=== PATIENT | female | born 1990 | race Caucasian/White ===

== ENCOUNTER 2016-09-02 22:57 | Outpatient (CLI) | payer MEDICAID | END 2016-09-02 22:58 | disposition critical access hospital (66) | DX: S09.90XA Unspecified injury of head, initial encounter (principal); R56.9 Unspecified convulsions; W18.39XA Other fall on same level, initial encounter; Y92.480 Sidewalk as the place of occurrence of the external cause | CPT/HCPCS: A0425; A0429 ==

== ENCOUNTER 2016-09-02 23:12 | Emergency (ER) | payer MEDICAID ==
[2016-09-03] MEDS ORDERED: levETIRAcetam 250 MG TABLET PO STA (01:26)
[2016-09-03] MEDS ORDERED: LIDOCAINE 2%-EPI 1:100000 20 ML MDV ONE (01:28)
[2016-09-03] MEDS ORDERED: levETIRAcetam 250 MG TABLET ONE (01:28)
== END 2016-09-03 01:58 | disposition home or self-care (01) ==
DX: R55 Syncope and collapse (principal); R56.9 Unspecified convulsions; S01.01XA Laceration without foreign body of scalp, initial encounter; W18.39XA Other fall on same level, initial encounter; Y92.009 Unspecified place in unspecified non-institutional (private) residence as the place of occurrence of the external cause; M54.2 Cervicalgia; M54.9 Dorsalgia, unspecified; F17.200 Nicotine dependence, unspecified, uncomplicated
CPT/HCPCS: 12002; 36415; 70450; 72125; 80053; 80306; 81001; 81025; 83690; 85025; 93005; 93010; 99284; 99285; A9270

== ENCOUNTER 2016-12-25 09:36 | Outpatient (CLI) | payer MEDICAID ==
[2016-12-25 12:31] LABS: LYMPHOCYTES # (AUTO) 4.5 10^3/uL (1.5-3.5)
[2016-12-25 12:35] LABS: BASOPHILS % (AUTO) 0.4 %; EOSINOPHILS # (AUTO) 0.2 10^3/uL (0.0-0.7); EOSINOPHILS % (AUTO) 2.1 %; HCT - HEMATOCRIT 42.6 % (37.0-47.0); HGB - HEMOGLOBIN 14.4 g/dL (12.0-16.0); LYMPHOCYTES % (AUTO) 39.7 %; MEAN CORPUSCULAR HEMOGLOBIN 29.7 pg (27.0-31.0); MEAN CORPUSCULAR HGB CONC 33.8 g/dL (32.0-36.0); MEAN CORPUSCULAR VOLUME 87.9 fL (81.0-99.0); MEAN PLATELET VOLUME 7.7 fL (7.9-10.8); MONOCYTES # (AUTO) 0.7 10^3/uL (0.0-1.0); MONOCYTES % (AUTO) 5.9 %; NEUTROPHILS # (AUTO) 5.9 10^3/uL (1.5-6.6); NEUTROPHILS % (AUTO) 51.9 %; RED BLOOD COUNT 4.85 10^6/uL (4.20-5.40); RED CELL DISTRIBUTION WIDTH 13.5 % (12.0-15.0); UNCORRECTED WHITE BLOOD COUNT 11.4 x10^3/uL; WHITE BLOOD COUNT 11.4 x10^3/uL (4.8-10.8)
[2016-12-25 13:11] LABS: ALBUMIN/GLOBULIN RATIO 1.1 (1.0-2.2); BILIRUBIN,TOTAL 0.2 mg/dL (0.2-1.0); BUN - BLOOD UREA NITROGEN 11 mg/dL (6-20); CARBON DIOXIDE - CO2 26 mmol/L (21-32); CHLORIDE 105 mmol/L (101-111); CHOL/HDL RATIO 3.9 (<4.4); CHOLESTEROL 196 mg/dL; CREATININE 0.8 mg/dL (0.4-1.0); GFR - MDRD 86 (>89); GLUCOSE 88 mg/dL (70-100); HDL CHOLESTEROL 50 mg/dL; LDL/HDL RATIO 2.5 (<4.4); POTASSIUM 4.3 mmol/L (3.5-5.0); SODIUM 138 mmol/L (135-145); TOTAL PROTEIN 7.3 g/dL (6.7-8.2); TRIGLYCERIDES 114 mg/dL; VLDL CHOLESTEROL 23 mg/dL
[2016-12-25 13:34] LABS: THYROID STIMULATING HORMONE 5.95 uIU/mL (0.34-5.60)
== END 2016-12-25 09:37 | disposition home or self-care (01) ==
LOC: LAB.N 09:36
PROVIDERS: ATTEND Family Medicine
DX: F41.1 Generalized anxiety disorder (principal); F33.1 Major depressive disorder, recurrent, moderate; Z51.81 Encounter for therapeutic drug level monitoring; R56.9 Unspecified convulsions
CPT/HCPCS: 36415; 80053; 80061; 84439; 84443; 85025

== ENCOUNTER 2017-06-08 14:21 | Outpatient (CLI) | payer MEDICAID ==
--- NOTE | 2017-06-08 21:38 | XRAY Report ---
DATE OF SERVICE: 06/08/2017 THREE VIEW LEFT KNEE: 06/08/2017 CLINICAL INDICATION: Pain. AP, lateral, sunrise views of the left knee demonstrate no evidence of fracture or dislocation. The joint spaces are preserved. No effusion is present. IMPRESSION: Normal left knee. TD: 06/08/2017 22:37
== END 2017-06-08 14:22 | disposition home or self-care (01) ==
LOC: DI 14:21
PROVIDERS: ATTEND Physician Assistant Medical
DX: M25.562 Pain in left knee (principal)

== ENCOUNTER 2017-07-11 19:36 | Emergency (ER) | payer MEDICAID ==
[2017-07-11 20:10] LABS: BILIRUBIN,URINE NEGATIVE (NEGATIVE); GLUCOSE, URINE (UA) NEGATIVE (NEGATIVE); KETONES,URINE (UA) NEGATIVE (NEGATIVE); LEUKOCYTE ESTERASE, URINE NEGATIVE (NEGATIVE); NITRITE,URINE NEGATIVE (NEGATIVE); OCCULT BLOOD,URINE NEGATIVE (NEGATIVE); PH,URINE 5.5 PH (5.0-7.5); PROTEIN,URINE NEGATIVE (NEGATIVE); UROBILINOGEN,URINE 0.2 (NORMAL) E.U./dL (NORMAL)
[2017-07-11 20:11] LABS: CLARITY,URINE CLEAR (CLEAR); HCG UR QUAL NEGATIVE
[2017-07-11] MEDS ORDERED: KETOROLAC 60 MG/2 ML VIAL IM STA (21:25)
[2017-07-11] MEDS ORDERED: LIDOCAINE PATCH 5% TOP STA (21:25)
[2017-07-11] MEDS ORDERED: DEXAMETHASONE 10 MG/ML VIAL PO STA (21:25)
[2017-07-11] MEDS ORDERED: CHERRY SYRUP 10 ML UDC PO ONE (21:42)
--- NOTE | 2017-07-11 21:55 | ED Physician Documentation ---
PD HPI BACK PAIN - Stated complaint Stated Complaint: BACK PX - Chief complaint Chief Complaint: Back Pain - History obtained from History obtained from: Patient, Family - History of Present Illness Timing - onset: Yesterday Timing - details: Gradual onset, Still present Location: Upper, Left Quality: Pain, Spasm Associated symptoms: No: Fever, Weakness, Hematuria Similar symptoms before: Has not had sx before Recently seen: Not recently seen - Additional information Additional information: Patient is a 26 year old female with no significant past medical history who is presenting to the emergency department for back pain. Patient states that the pain originally started on her right side yesterday and has moved to the left side today. Patient denies any trauma, but states that she has been coughing a lot. Review of Systems Constitutional: denies: Fever, Chills Eyes: reports: Reviewed and negative Ears: reports: Reviewed and negative Nose: reports: Reviewed and negative Throat: reports: Reviewed and negative Cardiac: denies: Chest pain / pressure, Palpitations Respiratory: reports: Cough GI: denies: Abdominal Pain, Nausea, Vomiting : denies: Dysuria, Frequency Skin: denies: Rash, Lesions Musculoskeletal: reports: Back pain Neurologic: denies: Generalized weakness, Focal weakness Psychiatric: reports: Reviewed and negative Endocrine: reports: Reviewed and negative PD PAST MEDICAL HISTORY - Past Medical History Neuro: Seizure disorder - Past Surgical History Past Surgical History: No - Present Medications Home Medications: Ambulatory Orders Medication Instructions Recorded Confirmed levETIRAcetam [Keppra] 500 mg PO BID #60 tablet 09/03/16 Cyclobenzaprine [Flexeril] 10 mg PO TID PRN #10 tablet 07/11/17 Lidocaine Patch 5% [Lidoderm Patch] 1 each TOP DAILY #10 patch 07/11/17 - Allergies Allergies/Adverse Reactions: Allergies Allergy/AdvReac Type Severity Reaction Status Date / Time Penicillins Allergy Unknown Verified 07/11/17 19:49 - Social History Does the pt smoke?: Yes Smoking Status: Current every day smoker Does the pt drink ETOH?: No Does the pt have substance abuse?: No - Immunizations Immunizations are current?: Yes - POLST Patient has POLST: No PD ED PE NORMAL - Vitals Vital signs reviewed: Yes - General General: Alert and oriented X 3, Well developed/nourished - HEENT HEENT: Atraumatic, PERRL - Neck Neck: Supple, no meningeal sign - Cardiac Cardiac: RRR, No murmur - Respiratory Respiratory: No respiratory distress, Clear bilaterally - Abdomen Abdomen: Soft, Non tender, Non distended - Derm Derm: Normal color, Warm and dry, No rash - Extremities Extremities: No deformity - Neuro Neuro: Alert and oriented X 3, No motor deficit Eye Opening: Spontaneous Motor: Obeys Commands Verbal: Oriented GCS Score: 15 - Psych Psych: Normal mood PD ED PE EXPANDED - General General: Alert, Anxious, In Pain - Back Back: Soft tissue tenderness (tenderness to palpation of left upper thoracic paraspinal muscles) Results - Vitals Vitals: Vital Signs - 24 hr 07/11/17 19:46 Temperature 37.0 C Heart Rate 112 H Respiratory 18 Rate Blood Pressure 128/94 H O2 Saturation 96 Oxygen O2 Source Room air - Labs Labs: Laboratory Tests 07/11/17 19:56 Urine Color YELLOW Urine Clarity CLEAR Urine pH 5.5 Ur Specific [place] <=1.005 Urine Protein NEGATIVE Urine Glucose (UA) NEGATIVE Urine Ketones NEGATIVE Urine Occult Blood NEGATIVE Urine Nitrite NEGATIVE Urine Bilirubin NEGATIVE Urine Urobilinogen 0.2 (NORMAL) Ur Leukocyte Esterase NEGATIVE Ur Microscopic Review NOT INDICATED Urine Culture Comments NOT INDICATED Urine HCG, Qual NEGATIVE PD MEDICAL DECISION MAKING - ED course Complexity details: reviewed old records, reviewed results, re-evaluated patient , considered differential, d/w patient, d/w family ED course: Patient was seen and examined at bedside. Patient's urine was collected and within normal limits. Patient had tenderness to palpation of her left upper back. Patient was treated with toradol, decadron, flexeril and a lidoderm patch. Patient required no further work up and was stable for discharge with outpatient follow up. Departure - Departure Disposition: 01 Home, Self Care Clinical Impression: Muscle strain of left upper back Condition: Good Instructions: ED Spasm Back No Trauma Follow-Up: Luan Zamorano MD [Primary Care Provider] - Within 1 week Prescriptions: Cyclobenzaprine [Flexeril] 10 mg PO TID PRN #10 tablet PRN Reason: Spasms Lidocaine Patch 5% [Lidoderm Patch] 1 each TOP DAILY #10 patch Comments: Your symptoms today are likely secondary to muscle spasm. You should take motrin or tylenol as needed for pain and alternate between ice and heat. You should follow up with your doctor if your symptoms persist. You may return to the emergency department at any time for new, worsening or uncontrollable symptoms.
[2017-07-11] MEDS ORDERED: CYCLOBENZAPRINE 10 MG TABLET PO STA (22:03)
[2017-07-11 22:09] VITALS: BP 138/78
== END 2017-07-11 22:09 | disposition home or self-care (01) ==
LOC: ED 19:36
DX: S29.012A Strain of muscle and tendon of back wall of thorax, initial encounter (principal); X58.XXXA Exposure to other specified factors, initial encounter; F17.200 Nicotine dependence, unspecified, uncomplicated
CPT/HCPCS: 81003; 81025; 96372; 99283; A9270; 81001; 87086

== ENCOUNTER 2017-07-19 20:32 | Emergency (ER) | payer MEDICAID ==
[2017-07-19 21:16] LABS: BASOPHILS # (AUTO) 0.1 10^3/uL (0.0-0.1); BASOPHILS % (AUTO) 0.7 %; EOSINOPHILS # (AUTO) 0.2 10^3/uL (0.0-0.7); EOSINOPHILS % (AUTO) 1.2 %; HGB - HEMOGLOBIN 13.4 g/dL (12.0-16.0); LYMPHOCYTES % (AUTO) 21.9 %; MEAN CORPUSCULAR HGB CONC 32.4 g/dL (32.0-36.0); MEAN CORPUSCULAR VOLUME 86.4 fL (81.0-99.0); MEAN PLATELET VOLUME 7.4 fL (7.9-10.8); MONOCYTES # (AUTO) 1.7 10^3/uL (0.0-1.0); MONOCYTES % (AUTO) 9.2 %; NEUTROPHILS # (AUTO) 12.3 10^3/uL (1.5-6.6); PLT - PLATELET COUNT 165 10^3/uL (130-450); RED BLOOD COUNT 4.78 10^6/uL (4.20-5.40); RED CELL DISTRIBUTION WIDTH 13.5 % (12.0-15.0); WHITE BLOOD COUNT 18.3 x10^3/uL (4.8-10.8)
[2017-07-19 21:22] LABS: GLUCOSE, URINE (UA) 100 mg/dL (NEGATIVE); KETONES,URINE (UA) NEGATIVE (NEGATIVE); LEUKOCYTE ESTERASE, URINE TRACE (NEGATIVE); NITRITE,URINE NEGATIVE (NEGATIVE); OCCULT BLOOD,URINE TRACE-LYSE (NEGATIVE); PH,URINE 5.5 PH (5.0-7.5); PROTEIN,URINE 30 mg/dL (NEGATIVE); UROBILINOGEN,URINE >=8.0 E.U./dL (NORMAL)
[2017-07-19 21:27] LABS: CLARITY,URINE CLOUDY (CLEAR)
[2017-07-19 21:28] LABS: BILIRUBIN,URINE MODERATE (NEGATIVE); HCG UR QUAL NEGATIVE; ICTOTEST,URINE POSITIVE
[2017-07-19 21:31] LABS: BACTERIA,URINE Moderate /HPF (None Seen); RBC,URINE 0-5 /HPF (0-5); SQUAMOUS EPITHELIAL CELL,UR MOD Squamous (<= Few)
[2017-07-19 21:36] LABS: DIFFERENTIAL COMMENT MANUAL=AUTO DIFF; PLATELET ESTIMATE, MANUAL NORMAL (130-450,000) (NORMAL); PLATELET MORPHOLOGY NORMAL APPEARANCE (NORMAL); RBC MORPHOLOGY (MULTIPLE) NORMAL APPEARANCE (NORMAL)
[2017-07-19 21:43] LABS: ALBUMIN 3.1 g/dL (3.2-5.5); ALBUMIN/GLOBULIN RATIO 0.8 (1.0-2.2); CALCIUM 8.5 mg/dL (8.5-10.3); CREATININE 1.3 mg/dL (0.4-1.0); TOTAL PROTEIN 6.8 g/dL (6.7-8.2)
--- NOTE | 2017-07-19 22:28 | ED Physician Documentation ---
PD HPI NVD - Stated complaint Stated Complaint: VOMITING/NAUSEA - Chief complaint Chief Complaint: Abd Pain - History obtained from History obtained from: Patient - History of Present Illness Timing - onset: How many days ago (2) Timing - duration: Days (2) Timing - details: Gradual onset, Waxing and waning Pain level now: 3 Associated symptoms: Abdominal pain (across upper abdomen). No: Fever, Chest pain Improved by: Other (no ameliorating factors) Worsened by: Eating Similar symptoms before: Has not had sx before Recently seen: Not recently seen Review of Systems Constitutional: reports: Reviewed and negative Eyes: reports: Reviewed and negative Ears: reports: Reviewed and negative Nose: reports: Reviewed and negative Throat: reports: Reviewed and negative Cardiac: reports: Reviewed and negative Respiratory: reports: Dyspnea. denies: Cough GI: reports: Abdominal Pain, Nausea, Vomiting : denies: Dysuria, Frequency Skin: reports: Reviewed and negative Musculoskeletal: reports: Reviewed and negative Neurologic: reports: Reviewed and negative PD PAST MEDICAL HISTORY - Past Medical History Neuro: Seizure disorder - Past Surgical History Past Surgical History: No - Present Medications Home Medications: Ambulatory Orders Medication Instructions Recorded Confirmed levETIRAcetam [Keppra] 500 mg PO BID #60 tablet 09/03/16 Cyclobenzaprine [Flexeril] 10 mg PO TID PRN #10 tablet 07/11/17 Norgestimate-Ethinyl Estradiol 1 each PO 07/19/17 [Ortho Tri-Cyclen 28 Tablet] Risperidone [Risperdal] 0.5 mg PO 07/19/17 Sertraline [Zoloft] 25 mg PO DAILY 07/19/17 07/19/17 - Allergies Allergies/Adverse Reactions: Allergies Allergy/AdvReac Type Severity Reaction Status Date / Time Penicillins Allergy Unknown Verified 07/19/17 20:45 - Social History Does the pt smoke?: Yes Smoking Status: Current every day smoker Does the pt drink ETOH?: No Does the pt have substance abuse?: No - Immunizations Immunizations are current?: Yes - POLST Patient has POLST: No PD ED PE NORMAL - Vitals Vital signs reviewed: Yes - General General: Alert and oriented X 3, No acute distress, Well developed/nourished - HEENT HEENT: Moist mucous membranes - Neck Neck: Supple, no meningeal sign - Cardiac Cardiac: RRR, No murmur, No gallop, No rub - Respiratory Respiratory: No respiratory distress, Other (L>R rales) - Abdomen Abdomen: Soft, Non distended, Other (mild tenderness LUQ>epigastrium) - Back Back: No CVA TTP - Derm Derm: Normal color, Warm and dry - Extremities Extremities: No edema - Neuro Neuro: Alert and oriented X 3 Results - Vitals Vitals: Vital Signs - 24 hr 07/19/17 07/19/17 07/20/17 20:38 23:00 00:15 Temperature 37.4 C Heart Rate 112 H 105 H 107 H Respiratory 18 15 14 Rate Blood Pressure 128/79 115/92 H 111/83 H O2 Saturation 93 94 95 07/20/17 07/20/17 07/20/17 02:04 03:14 04:15 Temperature Heart Rate 107 H 108 H 110 H Respiratory 20 20 20 Rate Blood Pressure 103/77 113/81 H 113/81 H O2 Saturation 96 92 94 Oxygen O2 Source Room air Oxygen Flow Rate 2 - Labs Labs: Laboratory Tests 07/19/17 07/19/17 07/19/17 20:58 21:05 21:05 WBC 18.3 H RBC 4.78 Hgb 13.4 Hct 41.3 MCV 86.4 MCH 28.0 MCHC 32.4 RDW 13.5 Plt Count 165 MPV 7.4 L Neut # 12.3 H Lymph # 4.0 H [place] # 1.7 H Eos # 0.2 Baso # 0.1 Absolute Nucleated RBC 0.03 Band Neuts % (Manual) Not Reportable Abnorm Lymph % (Manual) Not Reportable Nucleated RBC % 0.1 Neutrophils # (Manual) Not Reportable Lymphocytes # (Manual) Not Reportable Monocytes # (Manual) Not Reportable Eosinophils # (Manual) Not Reportable Basophils # (Manual) Not Reportable Differential Comment MANUAL=AUTO DIFF Platelet Estimate NORMAL (130-450,000) Platelet Morphology NORMAL APPEARANCE RBC Morph Micro Appear NORMAL APPEARANCE ESR Sodium 130 L Potassium 4.4 Chloride 94 L Carbon Dioxide 25 Anion Gap 11.0 BUN 17 Creatinine 1.3 H Estimated GFR (MDRD) 49 L Glucose 176 H Calcium 8.5 Total Bilirubin 1.0 AST 1328 H ALT 1634 H Alkaline Phosphatase 101 Total Protein 6.8 Albumin 3.1 L Globulin 3.7 Albumin/Globulin Ratio 0.8 L Lipase 16 L Urine Color DARK YELLOW Urine Clarity CLOUDY Urine pH 5.5 Ur Specific [place] >=1.030 H Urine Protein 30 H Urine Glucose (UA) 100 H Urine Ketones NEGATIVE Urine Occult Blood TRACE-LYSE Urine Nitrite NEGATIVE Urine Bilirubin MODERATE H Urine Urobilinogen >=8.0 H Ur Leukocyte Esterase TRACE H Urine RBC 0-5 Urine WBC 6-10 H Ur Squamous Epith Cells MOD Squamous H Urine Bacteria Moderate H Ur Microscopic Review INDICATED Urine Culture Comments NOT INDICATED Urine HCG, Qual NEGATIVE 07/20/17 03:09 WBC RBC Hgb Hct MCV MCH MCHC RDW Plt Count MPV Neut # Lymph # [place] # Eos # Baso # Absolute Nucleated RBC Band Neuts % (Manual) Abnorm Lymph % (Manual) Nucleated RBC % Neutrophils # (Manual) Lymphocytes # (Manual) Monocytes # (Manual) Eosinophils # (Manual) Basophils # (Manual) Differential Comment Platelet Estimate Platelet Morphology RBC Morph Micro Appear ESR 7 Sodium Potassium Chloride Carbon Dioxide Anion Gap BUN Creatinine Estimated GFR (MDRD) Glucose Calcium Total Bilirubin AST ALT Alkaline Phosphatase Total Protein Albumin Globulin Albumin/Globulin Ratio Lipase Urine Color Urine Clarity Urine pH Ur Specific [place] Urine Protein Urine Glucose (UA) Urine Ketones Urine Occult Blood Urine Nitrite Urine Bilirubin Urine Urobilinogen Ur Leukocyte Esterase Urine RBC Urine WBC Ur Squamous Epith Cells Urine Bacteria Ur Microscopic Review Urine Culture Comments Urine HCG, Qual - Rads (name of study) chest xray Radiology: Prelim report reviewed, See rad report PD MEDICAL DECISION MAKING - ED course Complexity details: reviewed results, re-evaluated patient, considered differential, d/w patient ED course: D/W Dr. Salamanca, he recommends transfer to higher level of care due to multisystem organ involvement and potential for requiring CARIN (which is not available here). I then d/w Dr. Hamilton at [facility], she accepts for transfer. She recommends Zosyn, which was given prior to departure (I asked her about listed allergy to Penicillin, but patient and family says that this was not an allergy , but rather that when she received amoxicillin when she was very young,the infection simply did not respond to it). Departure - Departure Disposition: 02 Transfer Acute Care Hosp Clinical Impression: Transaminasemia, Hypoxia Vomiting Qualifiers: Vomiting type: unspecified Vomiting Intractability: non-intractable Nausea presence: with nausea Qualified Code(s): R11.2 - Nausea with vomiting, unspecified Condition: Stable Discharge Date/Time: 07/20/17 04:29
[2017-07-19] MEDS ORDERED: ONDANSETRON 4 MG/2 ML VIAL IVP STA (22:52)
[2017-07-19] MEDS ORDERED: SODIUM CHLORIDE 0.9% 1,000 ML IV STA (22:52)
--- NOTE | 2017-07-20 01:56 | XRAY Preliminary Report ---
Exam: XR CHEST 2 VIEW X-RAY IMPRESSION: 1. Hypoventilatory appearance of the chest. 2. Patchy multifocal bilateral mid and lung base region airspace disease may be from infection and/or septic emboli. Additional streaky bibasilar atelectasis probably present. 3. Small bilateral effusions. [facility] SITE ID: [id number]
--- NOTE | 2017-07-20 02:12 | XRAY Report ---
EXAM: CHEST RADIOGRAPHY EXAM DATE: 07/20/2017 01:32 AM. CLINICAL HISTORY: Dyspnea. COMPARISON: None. TECHNIQUE: 2 views. A total of 3 exposures are provided for review. FINDINGS: Lungs/Pleura: Multifocal somewhat rounded and patchy bilateral mid as well as lung base region opacit ies. There are small bilateral effusions. No definite pneumothorax. Lung volumes are small. Mediastinum: Heart and mediastinal contours are unremarkable. Other: None. IMPRESSION: 1. Hypoventilatory appearance of the chest. 2. Patchy multifocal bilateral mid and lung base region airspace disease may be from infection and/or septic emboli. Additional streaky bibasilar atelectasis probably present. 3. Small bilateral effusions. [facility] Referring Provider Line: [phone] SITE ID: [id number]
[2017-07-20 03:15] VITALS: BP 113/81
[2017-07-20] MEDS ORDERED: SODIUM CHLORIDE 0.9% 1,000 ML IV STA (03:15)
[2017-07-20] MEDS ORDERED: PIPERACILLIN/TAZOBACTAM 4.5 GM in SODIUM CHLORIDE 0.9% MINIBAG 100 ML IV STA (03:20)
== END 2017-07-20 04:29 | disposition short-term general hospital (02) ==
LOC: ED 20:32
DX: R74.0 Nonspecific elevation of levels of transaminase and lactic acid dehydrogenase [LDH] (principal); R09.02 Hypoxemia; R11.2 Nausea with vomiting, unspecified; F17.200 Nicotine dependence, unspecified, uncomplicated
CPT/HCPCS: 36415; 71046; 80053; 81001; 81003; 81025; 83690; 85025; 85651; 87040; 87086; 96361; 96374; 96375; 99284; 99285

== ENCOUNTER 2017-07-20 04:30 | Outpatient (CLI) | payer MEDICAID | END 2017-07-20 04:31 | disposition short-term general hospital (02) | LOC: EMS 04:30 | PROVIDERS: ATTEND Surgery | DX: R06.02 Shortness of breath (principal); R07.9 Chest pain, unspecified; R05 Cough; R11.2 Nausea with vomiting, unspecified | CPT/HCPCS: A0425; A0426 ==

== ENCOUNTER 2017-08-31 14:44 | Outpatient (CLI) | payer MEDICAID | END 2017-08-31 14:45 | disposition home or self-care (01) | LOC: LAB 14:44 | PROVIDERS: ATTEND Nurse Practitioner | DX: I26.99 Other pulmonary embolism without acute cor pulmonale (principal) | CPT/HCPCS: 81240; 81291; 81599; 85240; 85300; 85303; 85305; 85306; 85307; 85613; 85730; 86146; 86147 ==

== ENCOUNTER 2018-05-19 09:38 | Outpatient (CLI) | payer MEDICAID ==
[2018-05-21 14:57] LABS: ANA SCREEN NEGATIVE (NEGATIVE)
== END 2018-05-19 23:59 | disposition home or self-care (01) ==
LOC: LAB.N 09:38
PROVIDERS: ATTEND Nurse Practitioner
DX: D68.62 Lupus anticoagulant syndrome (principal)
CPT/HCPCS: 36415; 86038

== ENCOUNTER 2018-09-19 15:59 | Emergency (ER) | payer MEDICAID ==
[2018-09-19 16:28] VITALS: BP 142/80
--- NOTE | 2018-09-19 17:06 | ED Physician Documentation ---
PD HPI HEENT - Stated complaint Stated Complaint: MOUTH PAIN - Chief complaint Chief Complaint: General - History obtained from History obtained from: Patient - History of Present Illness Timing - onset: How many days ago (1-2) Timing - details: Abrupt onset (she had had wisdom teeth extracted several days ago and gum was healing okay, and now has area of gum swelling and pain, with white pustule appearance behind extraction site.) Location: Tooth (right lower gum at extraction site) Associated symptoms: No: Fever, Congestion, Swollen nodes Recently seen: Surgery (had wisdom tooth extraction) Review of Systems Constitutional: denies: Fever, Chills Throat: reports: Oral lesions / sores (swelling and pain at gum). denies: Sore throat PD PAST MEDICAL HISTORY - Past Medical History Respiratory: Asthma Psych: Depression - Past Surgical History Past Surgical History: No - Present Medications Home Medications: Ambulatory Orders Medication Instructions Recorded Confirmed Sertraline [Zoloft] 25 mg PO DAILY 07/19/17 04/12/18 Apixaban [Eliquis] 5 mg PO BID 09/14/17 04/12/18 levETIRAcetam [Levetiracetam] 1,000 mg PO BID 09/14/17 04/12/18 risperiDONE [Risperdal] 1 mg PO DAILY 09/14/17 04/12/18 RX: Baclofen 10 mg PO QID 04/12/18 04/12/18 Chlorhexidine Gluconate [Peridex] 15 ml MM BID #118 ml 09/19/18 Sulfamethox/Trimeth 800/160 1 each PO BID #14 tablet 09/19/18 [Bactrim Ds 800/160] - Allergies Allergies/Adverse Reactions: Allergies Allergy/AdvReac Type Severity Reaction Status Date / Time No Known Drug Allergies Allergy Verified 09/19/18 16:28 - Social History Does the pt smoke?: Yes Smoking Status: Former smoker Does the pt drink ETOH?: No Does the pt have substance abuse?: No - Immunizations Immunizations are current?: Yes - POLST Patient has POLST: No PD ED PE NORMAL - Vitals Vital signs reviewed: Yes - General General: Alert and oriented X 3, No acute distress, Well developed/nourished - HEENT HEENT: Moist mucous membranes, Other (extraction site right lower is healing. Posterior to that in gum is a small white pointing pustule, and swelling/tenderness of the gum. No cervical adenopathy.) - Neck Neck: Supple, no meningeal sign, No adenopathy - Cardiac Cardiac: RRR, No murmur - Derm Derm: Normal color, Warm and dry, No rash Results - Vitals Vitals: Vital Signs - 24 hr 09/19/18 16:25 Temperature 36.5 C Heart Rate 83 Respiratory 14 Rate Blood Pressure 142/80 H O2 Saturation 99 Oxygen O2 Source Room air PD MEDICAL DECISION MAKING - ED course Complexity details: considered differential (There was a small white pustule appearance at the right lower posterior gum just behind the extraction site. This was superficial enough to not need local anesthetic and I nicked it with the end of a #11 scalpel and got a couple drops of pus out. I think this will be sufficient to initiate drainage concurrent with some antibiotics.), d/w patient Departure - Departure Disposition: 01 Home, Self Care Clinical Impression: Gum abscess Condition: Stable Record reviewed to determine appropriate education?: Yes Instructions: ED Abscess Dental Follow-Up: Latonia Corrales DNP [Primary Care Provider] - Prescriptions: Chlorhexidine Gluconate [Peridex] 15 ml MM BID #118 ml Sulfamethox/Trimeth 800/160 [Bactrim Ds 800/160] 1 each PO BID #14 tablet Comments: The small area I lanced had a couple of drops of pus come out. I think this will continue to drain. Use antiseptic mouth wash twice daily. Add Bactrim antibiotic twice daily to your current medications. Recheck if not improving over the next several days with your oral surgeon. Discharge Date/Time: 09/19/18 17:56
[2018-09-19] MEDS ORDERED: NAPROXEN 250 MG TABLET PO STA (17:32)
[2018-09-19] MEDS ORDERED: SULFAMETH/TRIMETH DS 800/160 MG TABLET PO STA (17:32)
== END 2018-09-19 17:56 | disposition home or self-care (01) ==
LOC: ED 15:59
DX: K05.219 Aggressive periodontitis, localized, unspecified severity (principal); Z98.818 Other dental procedure status; Z87.891 Personal history of nicotine dependence
CPT/HCPCS: 99283; A9270

== ENCOUNTER 2018-11-02 08:00 | Outpatient (CLI) | payer MEDICAID ==
[2018-11-02 19:00] LABS: BASOPHILS # (AUTO) 0.1 10^3/uL (0.0-0.1); BASOPHILS % (AUTO) 0.6 %; EOSINOPHILS # (AUTO) 0.2 10^3/uL (0.0-0.7); EOSINOPHILS % (AUTO) 1.9 %; HGB - HEMOGLOBIN 12.3 g/dL (12.0-16.0); LYMPHOCYTES # (AUTO) 3.7 10^3/uL (1.5-3.5); LYMPHOCYTES % (AUTO) 36.8 %; MEAN CORPUSCULAR HEMOGLOBIN 24.3 pg (27.0-31.0); MEAN CORPUSCULAR HGB CONC 29.6 g/dL (32.0-36.0); MEAN CORPUSCULAR VOLUME 82.2 fL (81.0-99.0); MEAN PLATELET VOLUME 9.7 fL (7.9-10.8); MONOCYTES # (AUTO) 0.5 10^3/uL (0.0-1.0); MONOCYTES % (AUTO) 4.8 %; NEUTROPHILS # (AUTO) 5.6 10^3/uL (1.5-6.6); NEUTROPHILS % (AUTO) 55.6 %; PLT - PLATELET COUNT 370 10^3/uL (130-450); RED BLOOD COUNT 5.06 10^6/uL (4.20-5.40); RED CELL DISTRIBUTION WIDTH 15.5 % (12.0-15.0); WHITE BLOOD COUNT 10.1 x10^3/uL (4.8-10.8)
[2018-11-02 19:22] LABS: CREATININE 0.9 mg/dL (0.4-1.0)
== END 2018-11-02 08:01 | disposition home or self-care (01) ==
LOC: LAB.N 08:00
PROVIDERS: ATTEND Physician Assistant Medical
DX: F41.1 Generalized anxiety disorder (principal); F33.1 Major depressive disorder, recurrent, moderate; Z51.81 Encounter for therapeutic drug level monitoring
CPT/HCPCS: 36415; 80048; 84443; 85025

== ENCOUNTER 2019-01-27 04:05 | Outpatient (CLI) | payer MEDICAID | END 2019-01-27 04:06 | disposition critical access hospital (66) | LOC: EMS 04:05 | PROVIDERS: ATTEND Surgery | DX: M54.5 Low back pain (principal); R07.89 Other chest pain | CPT/HCPCS: A0425; A0429 ==

== ENCOUNTER 2019-01-27 04:24 | Emergency (ER) | payer MEDICAID ==
--- NOTE | 2019-01-27 04:32 | ED Physician Documentation ---
PD HPI CHEST PAIN - Stated complaint Stated Complaint: CP - Chief complaint Chief Complaint: Cardiac - History obtained from History obtained from: Patient, EMS - History of Present Illness Timing - onset: How many hours ago (1-2) Timing - details: Abrupt onset Pain level now: 8 Quality: Sharp Location: Other (initially right lower back but spread to right chest) Worsened by: Inspiration Associated symptoms: No: Shortness of air, Nausea, Vomiting, General Weakness Similar symptoms before: Has not had sx before Recently seen: Not recently seen - Additional information Additional information: BIBA. right lower back pain without injury since this morning. approximately 1 hour CHICKEN PICKER, patient sneezed and had sudden onset right-sided chest pain that is worse with inspiration, more posterior than anterior Review of Systems Constitutional: reports: Reviewed and negative Cardiac: reports: Chest pain / pressure. denies: Palpitations, Pedal edema, Calf pain Respiratory: reports: Reviewed and negative GI: reports: Reviewed and negative : denies: Dysuria, Frequency Musculoskeletal: reports: Reviewed and negative PD PAST MEDICAL HISTORY - Past Medical History Cardiovascular: Pulmonary embolism Respiratory: Asthma Neuro: Seizure disorder Psych: Depression - Past Surgical History Past Surgical History: No - Present Medications Home Medications: Ambulatory Orders Medication Instructions Recorded Confirmed Sertraline [Zoloft] 25 mg PO DAILY 07/19/17 04/12/18 Apixaban [Eliquis] 5 mg PO BID 09/14/17 04/12/18 levETIRAcetam [Levetiracetam] 1,000 mg PO BID 09/14/17 04/12/18 risperiDONE [Risperdal] 1 mg PO DAILY 09/14/17 04/12/18 Baclofen 10 mg PO QID 04/12/18 04/12/18 Chlorhexidine Gluconate [Peridex] 15 ml MM BID #118 ml 09/19/18 Sulfamethox/Trimeth 800/160 1 each PO BID #14 tablet 09/19/18 [Bactrim Ds 800/160] Hydrocodone/Acetaminophen 1 - 2 each PO Q6H PRN #14 tablet 01/27/19 [Hydrocodon-Acetaminophen 5-325] Methocarbamol 500 mg PO BID PRN #20 tablet 01/27/19 - Allergies Allergies/Adverse Reactions: Allergies Allergy/AdvReac Type Severity Reaction Status Date / Time No Known Drug Allergies Allergy Verified 01/27/19 04:29 - Social History Does the pt smoke?: Yes Smoking Status: Former smoker Does the pt drink ETOH?: No Does the pt have substance abuse?: No - Immunizations Immunizations are current?: Yes - POLST Patient has POLST: No PD ED PE NORMAL - Vitals Vital signs reviewed: Yes - General General: Alert and oriented X 3, No acute distress, Well developed/nourished - Neck Neck: Supple, no meningeal sign - Cardiac Cardiac: RRR, No murmur, No gallop, No rub - Respiratory Respiratory: No respiratory distress, Clear bilaterally - Abdomen Abdomen: Soft, Non tender - Back Back: No CVA TTP, No spinal TTP - Derm Derm: Normal color, Warm and dry, No rash - Extremities Extremities: No edema Results - Vitals Vitals: Vital Signs - 24 hr 01/27/19 01/27/19 05:38 06:51 Heart Rate 74 74 Respiratory 14 24 Rate Blood Pressure 104/60 105/68 O2 Saturation 98 95 Oxygen O2 Source Room air - EKG (time done) No standard instances Rate: Rate (enter#) (73) Rhythm: NSR [place]: Normal Intervals: Normal MS QRS: Normal Ischemia: Normal ST segments - Labs Labs: Laboratory Tests 01/27/19 01/27/19 04:35 04:35 WBC 11.9 H RBC 4.66 Hgb 11.5 L Hct 36.6 L MCV 78.5 L MCH 24.7 L MCHC 31.4 L RDW 14.5 Plt Count 416 MPV 9.0 Neut # (Auto) 6.3 Lymph # (Auto) 4.5 H [place] # (Auto) 0.7 Eos # (Auto) 0.2 Baso # (Auto) 0.1 Absolute Nucleated RBC 0.00 Nucleated RBC % 0.0 Sodium 141 Potassium 4.0 Chloride 107 Carbon Dioxide 27 Anion Gap 7.0 BUN 9 Creatinine 0.8 Estimated GFR (MDRD) 85 L Glucose 114 H Calcium 9.5 Total Bilirubin 0.5 AST 21 ALT 19 Alkaline Phosphatase 86 Total Protein 7.1 Albumin 3.5 Globulin 3.6 Albumin/Globulin Ratio 1.0 Lipase 32 - Rads (name of study) chest xray Radiology: Prelim report reviewed, See rad report CT chest angio Radiology: Prelim report reviewed, See rad report PD MEDICAL DECISION MAKING - ED course Complexity details: reviewed old records, reviewed results, re-evaluated patient, considered differential, d/w patient Departure - Departure Disposition: 01 Home, Self Care Clinical Impression: Back pain Condition: Good Instructions: ED Neck Back Pain General Follow-Up: Latonia Corrales DNP [Primary Care Provider] - Prescriptions: Hydrocodone/Acetaminophen [Hydrocodon-Acetaminophen 5-325] 1 - 2 each PO Q6H PRN #14 tablet PRN Reason: pain Methocarbamol 500 mg PO BID PRN #20 tablet PRN Reason: Spasms Discharge Date/Time: 01/27/19 07:05
[2019-01-27] MEDS ORDERED: MORPHINE 2 MG/ML CARPUJECT IVP STA ×2 (04:33→05:32)
[2019-01-27 04:51] LABS: BASOPHILS # (AUTO) 0.1 10^3/uL (0.0-0.1); BASOPHILS % (AUTO) 0.6 %; EOSINOPHILS # (AUTO) 0.2 10^3/uL (0.0-0.7); EOSINOPHILS % (AUTO) 1.9 %; HGB - HEMOGLOBIN 11.5 g/dL (12.0-16.0); LYMPHOCYTES # (AUTO) 4.5 10^3/uL (1.5-3.5); LYMPHOCYTES % (AUTO) 38.3 %; MEAN CORPUSCULAR HEMOGLOBIN 24.7 pg (27.0-31.0); MEAN CORPUSCULAR HGB CONC 31.4 g/dL (32.0-36.0); MEAN CORPUSCULAR VOLUME 78.5 fL (81.0-99.0); MONOCYTES # (AUTO) 0.7 10^3/uL (0.0-1.0); MONOCYTES % (AUTO) 6.2 %; NEUTROPHILS # (AUTO) 6.3 10^3/uL (1.5-6.6); NEUTROPHILS % (AUTO) 52.7 %; PLT - PLATELET COUNT 416 10^3/uL (130-450); RED BLOOD COUNT 4.66 10^6/uL (4.20-5.40); RED CELL DISTRIBUTION WIDTH 14.5 % (12.0-15.0); WHITE BLOOD COUNT 11.9 x10^3/uL (4.8-10.8)
[2019-01-27 05:03] LABS: ALBUMIN 3.5 g/dL (3.2-5.5); BILIRUBIN,TOTAL 0.5 mg/dL (0.2-1.0); CALCIUM 9.5 mg/dL (8.5-10.3); CREATININE 0.8 mg/dL (0.4-1.0); TOTAL PROTEIN 7.1 g/dL (6.7-8.2)
--- NOTE | 2019-01-27 05:23 | XRAY Report ---
Reason: right-sided chest pain Procedure Date: 01/27/2019 Accession Number: [id number] / [id number] Procedure: XR - Chest 2 View X-Ray CPT Code: 91450 FULL RESULT: EXAM: CHEST RADIOGRAPHY EXAM DATE: 01/27/2019 05:07 AM. CLINICAL HISTORY: Right-sided chest pain. COMPARISON: CHEST 2 VIEW 07/20/2017 1:14 AM. TECHNIQUE: 2 views. FINDINGS: Lungs/Pleura: No alveolar consolidation or pleural effusion seen. No pneumothorax. Mediastinum: Heart size upper normal. Other: None. IMPRESSION: 1. Borderline heart size. 2. No acute abnormality seen. [facility]
[2019-01-27] MEDS ORDERED: IOVERSOL 320 100 ML VIAL IVP ONE ×2 (05:59→06:26)
--- NOTE | 2019-01-27 06:39 | CT Report ---
Reason: right CP, h/o PE Procedure Date: 01/27/2019 Accession Number: [id number] / [id number] Procedure: CT - ANGIO CHEST W/WO CPT Code: FULL RESULT: EXAM: CT ANGIOGRAM CHEST EXAM DATE: 01/27/2019 06:23 AM CLINICAL HISTORY: Right chest pain, history of pulmonary embolus. COMPARISON: CHEST 2 VIEW 01/27/2019 4:55 AM. TECHNIQUE: Routine helical imaging was performed through the chest in the pulmonary arterial phase. IV Contrast: Yes. Reconstructions: Coronal 3D MIP reconstructions. Sagittal and coronal. In accordance with CT protocol optimization, one or more of the following dose reduction techniques were utilized for this exam: automated exposure control, adjustment of mA and/or KV based on patient size, or use of iterative reconstructive technique. FINDINGS: Pulmonary Arteries: Technically adequate for evaluation through the segmental arteries. No evidence for acute or chronic pulmonary emboli. Lungs/Pleura: Mild bronchial wall thickening. No pneumonia, suspicious nodules, or edema. Mild bilateral scarring/atelectasis. Tiny right upper lobe pulmonary nodule is likely a post-inflammatory scar. No effusions or pneumothorax. Mediastinum: No acute aortic syndrome. No cardiac enlargement. No adenopathy. Upper Abdomen: No acute abnormality seen with note of small bryson-incisional fat-containing hernias. Other: None. IMPRESSION: 1. No pulmonary emboli or acute aortic syndrome. 2. Mild bronchial wall thickening which can be seen with acute and/or chronic bronchitis versus reactive airways disease. [facility]
[2019-01-27 06:53] VITALS: BP 105/68
== END 2019-01-27 07:05 | disposition home or self-care (01) ==
LOC: EDUNIT# → ED 04:24
DX: M54.5 Low back pain (principal); R07.9 Chest pain, unspecified; Z86.711 Personal history of pulmonary embolism; Z79.01 Long term (current) use of anticoagulants; Z87.891 Personal history of nicotine dependence
CPT/HCPCS: 36415; 71046; 71275; 80053; 83690; 85025; 93005; 96374; 96376; 99284; Q9967

== ENCOUNTER 2019-05-25 08:23 | Outpatient (CLI) | payer MEDICAID ==
--- NOTE | 2019-05-25 16:33 | Mammography Report ---
Reason: BREAST PAIN, RT Procedure Date: 05/25/2019 Accession Number: [id number] / [id number] Procedure: IMTIAZ - Diagnostic Dig Bilat CPT Code: Final Report FULL RESULT: EXAM: Diagnostic Dig Bilat DATE: 05/25/2019 12:12 PM CLINICAL HISTORY: Diagnostic examination. History of nulliparity. Family history of breast cancer in second degree relative. TECHNIQUE: (B) - Bilateral CC and MLO views were obtained. Right focused breast ultrasound is performed. COMPARISON: None PARENCHYMAL PATTERN: (D) - The breast(s) demonstrate(s) heterogeneously dense fibroglandular parenchyma. FINDINGS: Focused right breast ultrasound reveals normal breast tissue with no suspicious mass or architectural distortion. There are no suspicious masses, calcifications, or areas of distortion. IMPRESSION: Negative examination. BI-RADS category 1. RECOMMENDATION: (CLIN) - Clinical follow-up for symptoms is recommended. BI-RADS CATEGORY: (1) - Negative. STANDARD QUALIFYING STATEMENTS: 1. This examination was not reviewed with the aid of Computer-Aided Detection (CAD). 2. A negative or benign imaging report should not preclude biopsy if clinically suspicious findings are present. 3. Dense breasts may obscure an underlying neoplasm. 4. This examination was reviewed with the aid of 3D breast imaging (tomosynthesis).
== END 2019-05-25 08:24 | disposition home or self-care (01) ==
LOC: DI 08:23
PROVIDERS: ATTEND Physician Assistant Medical
DX: N64.4 Mastodynia (principal); Z80.3 Family history of malignant neoplasm of breast
CPT/HCPCS: 76642; 77066

== ENCOUNTER 2020-02-26 14:55 | Outpatient (CLI) | payer MEDICAID ==
[2020-02-26 18:14] LABS: BASOPHILS # (AUTO) 0.1 10^3/uL (0.0-0.1); BASOPHILS % (AUTO) 0.7 %; EOSINOPHILS # (AUTO) 0.2 10^3/uL (0.0-0.7); EOSINOPHILS % (AUTO) 1.9 %; HGB - HEMOGLOBIN 10.8 g/dL (12.0-16.0); LYMPHOCYTES # (AUTO) 3.3 10^3/uL (1.5-3.5); LYMPHOCYTES % (AUTO) 35.7 %; MEAN CORPUSCULAR HEMOGLOBIN 22.2 pg (27.0-31.0); MEAN CORPUSCULAR HGB CONC 29.5 g/dL (32.0-36.0); MEAN CORPUSCULAR VOLUME 75.3 fL (81.0-99.0); MEAN PLATELET VOLUME 9.5 fL (7.9-10.8); MONOCYTES # (AUTO) 0.6 10^3/uL (0.0-1.0); MONOCYTES % (AUTO) 6.1 %; NEUTROPHILS # (AUTO) 5.2 10^3/uL (1.5-6.6); NEUTROPHILS % (AUTO) 55.2 %; PLT - PLATELET COUNT 483 10^3/uL (130-450); RED BLOOD COUNT 4.86 10^6/uL (4.20-5.40); RED CELL DISTRIBUTION WIDTH 15.9 % (12.0-15.0); WHITE BLOOD COUNT 9.3 x10^3/uL (4.8-10.8)
[2020-02-26 18:49] LABS: ALBUMIN 3.5 g/dL (3.2-5.5); ALBUMIN/GLOBULIN RATIO 0.9 (1.0-2.2); ALKALINE PHOSPHATASE 86 IU/L (42-121); ALT ALANINE AMINOTRANSFERASE 15 IU/L (10-60); AST ASPARTATE AMINOTRANSFERASE 14 IU/L (10-42); BILIRUBIN,TOTAL 0.5 mg/dL (0.2-1.0); BUN - BLOOD UREA NITROGEN 11 mg/dL (6-20); CALCIUM 9.4 mg/dL (8.5-10.3); CARBON DIOXIDE - CO2 23 mmol/L (21-32); CHLORIDE 106 mmol/L (101-111); CHOL/HDL RATIO 3.5 (<4.4); CHOLESTEROL 183 mg/dL; CREATININE 0.8 mg/dL (0.4-1.0); GLUCOSE 109 mg/dL (70-100); HDL CHOLESTEROL 53 mg/dL; LDL CHOLESTEROL,CALCULATED 102 mg/dL; LDL/HDL RATIO 1.9 (<4.4); SODIUM 137 mmol/L (135-145); TOTAL PROTEIN 7.2 g/dL (6.7-8.2); VLDL CHOLESTEROL 28 mg/dL
[2020-02-26 20:11] LABS: HEMOGLOBIN A1c% 6.5 % (4.27-6.07)
== END 2020-02-26 23:59 | disposition home or self-care (01) ==
LOC: LAB.WCP 14:55
PROVIDERS: ATTEND Physician Assistant
DX: Z00.00 Encounter for general adult medical examination without abnormal findings (principal)
CPT/HCPCS: 36415; 80053; 80061; 83036; 83721; 84443; 85025

== ENCOUNTER 2020-03-08 08:00 | Outpatient (CLI) | payer MEDICAID ==
[2020-03-08 18:40] LABS: % IRON SATURATION 6 % (20-50); IRON 27 ug/dL (28-170); TOTAL IRON BINDING CAPACITY 477 ug/dL (250-450); TRANSFERRIN 341 mg/dL (192-382)
== END 2020-03-08 08:01 | disposition home or self-care (01) ==
LOC: LAB.WCP 08:00
PROVIDERS: ATTEND Physician Assistant
DX: D64.9 Anemia, unspecified (principal)
CPT/HCPCS: 36415; 82728; 83540; 84466

== ENCOUNTER 2020-07-09 13:35 | Outpatient (CLI) | payer MEDICAID ==
[2020-07-09 13:53] LABS: BASOPHILS # (AUTO) 0.1 10^3/uL (0.0-0.1); BASOPHILS % (AUTO) 0.5 %; EOSINOPHILS # (AUTO) 0.2 10^3/uL (0.0-0.7); EOSINOPHILS % (AUTO) 2.5 %; HCT - HEMATOCRIT 44.5 % (37.0-47.0); LYMPHOCYTES # (AUTO) 3.7 10^3/uL (1.5-3.5); LYMPHOCYTES % (AUTO) 39.2 %; MEAN CORPUSCULAR HEMOGLOBIN 26.1 pg (27.0-31.0); MEAN CORPUSCULAR HGB CONC 31.5 g/dL (32.0-36.0); MEAN CORPUSCULAR VOLUME 82.9 fL (81.0-99.0); MEAN PLATELET VOLUME 8.6 fL (7.9-10.8); MONOCYTES # (AUTO) 0.5 10^3/uL (0.0-1.0); MONOCYTES % (AUTO) 5.3 %; NEUTROPHILS % (AUTO) 52.3 %; PLT - PLATELET COUNT 340 10^3/uL (130-450); RED BLOOD COUNT 5.37 10^6/uL (4.20-5.40); RED CELL DISTRIBUTION WIDTH 17.2 % (12.0-15.0); WHITE BLOOD COUNT 9.5 x10^3/uL (4.8-10.8)
[2020-07-09 14:20] LABS: % IRON SATURATION 24 % (20-50); IRON 82 ug/dL (28-170); TOTAL IRON BINDING CAPACITY 343 ug/dL (250-450); TRANSFERRIN 245 mg/dL (192-382)
[2020-07-09 14:26] LABS: THYROID STIMULATING HORMONE 2.43 uIU/mL (0.34-5.60)
[2020-07-09 14:32] LABS: FERRITIN 17.6 ng/mL (11.0-306.8)
== END 2020-07-09 13:36 | disposition home or self-care (01) ==
LOC: LAB 13:35
PROVIDERS: ATTEND Nurse Practitioner Family
DX: D64.9 Anemia, unspecified (principal); L65.9 Nonscarring hair loss, unspecified
CPT/HCPCS: 36415; 82728; 83540; 84443; 84466; 85025

== ENCOUNTER → 2022-04-09 | Outpatient (CLI) | payer MEDICAID | END | disposition left against medical advice (07) | LOC: EMS 15:07 | DX: R07.89 Other chest pain (principal); Z96.82 Presence of neurostimulator ==

== ENCOUNTER 2022-12-26 22:52 | Outpatient (CLI) | payer MEDICAID | END 2022-12-26 23:59 | disposition EMS.NT | LOC: EMS 22:52 | DX: R00.2 Palpitations (principal); R00.0 Tachycardia, unspecified ==